=== PATIENT | female | born 1960 | race Caucasian/White ===

== ENCOUNTER 2022-05-31 09:12 | Outpatient (CLI) | payer OTHER | END 2022-05-31 09:13 | disposition home or self-care (01) | LOC: CSHRAD 09:12 | PROVIDERS: ATTEND Student in an Organized Health Care Education/Training Program | DX: M54.50 Low back pain, unspecified (principal); Z98.890 Other specified postprocedural states; M47.816 Spondylosis without myelopathy or radiculopathy, lumbar region | CPT/HCPCS: 72100 ==

== ENCOUNTER 2023-10-09 12:54 | Outpatient (CLI) | payer OTHER | END 2023-10-09 12:55 | disposition home or self-care (01) | LOC: CSHULT 12:54 | PROVIDERS: ATTEND Internal Medicine Hematology & Oncology | DX: Z01.818 Encounter for other preprocedural examination (principal); C50.412 Malignant neoplasm of upper-outer quadrant of left female breast | CPT/HCPCS: 93306 ==

== ENCOUNTER 2023-10-24 06:17 | Day surgery (SDC) | payer OTHER ==
[2023-10-19 14:07] VITALS: BMI 21.1
[2023-10-24] MEDS ORDERED: Ketorolac Tromethamine 30 MG (1 mL) VIAL ONE (06:41)
[2023-10-24] MEDS ORDERED: Acetaminophen 500 MG TAB ONE (06:42)
[2023-10-24] MEDS ORDERED: fentaNYL 50 mcg/mL 1 mL Vial ONE ×6 (06:48→09:58)
[2023-10-24] MEDS ORDERED: Lidocaine 1% PF 5 ML VIAL ONE (06:48)
[2023-10-24] MEDS ORDERED: PROPOFOL 40 ML ONE (06:48)
[2023-10-24] MEDS ORDERED: Dexamethasone 4 mg/ml Vial ONE (06:48)
[2023-10-24] MEDS ORDERED: Ondansetron PF 4 MG/2 ML Vial ONE (06:48)
[2023-10-24] MEDS ORDERED: Dexmedetomidine 200 MCG/2 ML VIAL ONE (06:55)
[2023-10-24] MEDS ORDERED: Bupivacaine 0.25% HCL 30 ML VIAL ONE (07:02)
[2023-10-24] MEDS ORDERED: Lidocaine 1% (PF) 30 ML VIAL ONE (07:02)
[2023-10-24] MEDS ORDERED: EPINEPHrine 1 MG/ML VIAL ONE (07:02)
[2023-10-24] MEDS ORDERED: CEFAZOLIN 2 GM VIAL ONE (07:24)
[2023-10-24] MEDS ORDERED: ePHEDrine Sulfate 50 MG/10 ML VIAL ONE (07:28)
[2023-10-24] MEDS ORDERED: PHENYLEPHRINE-NS 100 MCG/ML 10 ML SYRINGE ONE (07:28)
[2023-10-24] MEDS ORDERED: Midazolam HCl 2 mg/2 ml Vial ONE (07:29)
[2023-10-24] MEDS ORDERED: HYDROmorphone 0.5 MG/0.5 ML SYRINGE ONE (10:06)
[2023-10-24] MEDS ORDERED: HYDROcodone/Acetaminophen 5/325 mg Tablet ONE (10:39)
== END 2023-10-24 11:30 | disposition home or self-care (01) ==
LOC: CSHSDC 06:17
PROVIDERS: ATTEND Specialist
PROC: 0HBU0ZZ Excision of Left Breast, Open Approach (ICD-10-PCS; principal; 2023-10-24)
DX: C50.812 Malignant neoplasm of overlapping sites of left female breast (principal); E11.9 Type 2 diabetes mellitus without complications; I10 Essential (primary) hypertension; J44.9 Chronic obstructive pulmonary disease, unspecified; F41.9 Anxiety disorder, unspecified; F32.A Depression, unspecified; F17.200 Nicotine dependence, unspecified, uncomplicated; Z79.84 Long term (current) use of oral hypoglycemic drugs; Z79.899 Other long term (current) drug therapy; Z88.2 Allergy status to sulfonamides; Z88.5 Allergy status to narcotic agent; Z91.040 Latex allergy status
CPT/HCPCS: 88309; A6258; J0171; J0665; J1100; J1170; J1885; J2001; J2250; J2405; J2704; J3010

== ENCOUNTER 2024-02-01 14:12 | Outpatient (CLI) | payer OTHER | END 2024-02-01 14:13 | disposition home or self-care (01) | LOC: CSHULT 14:12 | PROVIDERS: ATTEND Internal Medicine Hematology & Oncology | DX: C50.412 Malignant neoplasm of upper-outer quadrant of left female breast (principal); I42.7 Cardiomyopathy due to drug and external agent; Z79.69 Long term (current) use of other immunomodulators and immunosuppressants; Z79.899 Other long term (current) drug therapy; I08.0 Rheumatic disorders of both mitral and aortic valves; I31.39 Other pericardial effusion (noninflammatory) | CPT/HCPCS: 93306 ==